=== PATIENT | female | born 1970 | race Caucasian/White ===

== ENCOUNTER → 2018-03-05 | Outpatient (CLI) | payer OTHER ==
[2014-12-08 20:11] VITALS: BP 141/83
--- NOTE | 2018-03-05 13:18 | RAD ---
Left breast ultrasound, 03/05/2018: HISTORY: Mastoiditis The area of clinical concern in the retroareolar region was scanned. There is a complex mass at this level measuring 2.3 x 2.7 x 2.9 cm. It contains cystic and hypoechoic components. There is increased vascularity along the periphery of this process. Its margins are lobulated. The findings suggest cellulitis. No discrete drainable abscess is evident. Clinical and sonographic follow-up is suggested to exclude a neoplastic etiology. Electronically signed by: Partha Millard MD (03/05/2018 1:15 PM) [facility] [place]
== END | disposition home or self-care (01) ==
LOC: US 11:48
PROVIDERS: ATTEND Physician Assistant Medical
DX: N61.0 Mastitis without abscess (principal); N64.4 Mastodynia
CPT/HCPCS: 76641

== ENCOUNTER → 2018-04-29 | Outpatient (CLI) | payer OTHER ==
[2014-12-08 20:11] VITALS: BP 141/83
--- NOTE | 2018-04-29 14:08 | KCIC ---
Bilateral diagnostic digital mammograms with 3-D tomosynthesis: Reason for examination: History of left breast abscess drained March 20, 2018. Still has a hardness in the area. Comparison is made to previous mammographic examination dated 12/23/2013 and ultrasound examination dated 03/05/2018. Bilateral mammograms in CC and oblique projections were obtained with 2-D imaging and 3-D tomosynthesis imaging on a Siemens Inspiration unit and reviewed on the workstation. Interpretation was made with the benefit of CAD. The skin and nipples show no abnormalities. No abnormal axillary lymph nodes are seen. The breast parenchyma shows scattered fatty and fibroglandular density. (Breast density: Category B.) There continues to be some nodularity in the retroareolar position of the left breast corresponding to site of previous abscess drainage. Recommend follow-up with ultrasound. There are no other new dominant masses, suspicious calcifications or architectural distortion. Impression: Nodularity in the subareolar position of the left breast corresponding to the area of previous abscess drainage. Recommend further evaluation with ultrasound. BI-RADS Category 0: Incomplete. Needs additional imaging evaluation. "Our facility is accredited by the [employer] Mammography [employer]." This patient's information has been entered into a reminder system for the patient to be notified with the results of her examination and a target date for the next mammogram. Electronically signed by: Massiel Cedeno MD (04/29/2018 2:03 PM) [facility]
== END | disposition home or self-care (01) ==
LOC: KCIC MAMMO 12:47
PROVIDERS: ATTEND Family Medicine
DX: N61.1 Abscess of the breast and nipple (principal)
CPT/HCPCS: 77066; G0279; 77062

== ENCOUNTER → 2018-05-12 | Outpatient (CLI) | payer OTHER ==
[2014-12-08 20:11] VITALS: BP 141/83
--- NOTE | 2018-05-12 13:34 | KCIC ---
Left breast ultrasound: Reason for examination: Follow-up lump. History of abscess drainage at the site. Comparison is made to previous study dated 03/05/2018. Ultrasound examination of the left breast was performed in the area of clinical concern and at the left axilla. In the retroareolar position there continues to be hypoechoic lesion at the 10:00 retroareolar position which has decreased in size now measuring 9.9 x 8.1 x 7.5 mm in greatest dimensions. No other cystic or solid lesions are seen. No abnormal appearing lymph nodes are seen in the axilla. IMPRESSION: Continued presence of a 9.9 mm lesion in the retroareolar 10:00 position with interval decrease in size. Recommend clinical follow-up. BI-RADS Category 2: Benign. "Our facility is accredited by the [employer] Mammography [employer]." This patient's information has been entered into a reminder system for the patient to be notified with the results of her examination and a target date for the next mammogram. Electronically signed by: Massiel Cedeno MD (05/12/2018 1:31 PM) [facility]
== END | disposition home or self-care (01) ==
LOC: KCIC US 12:57
PROVIDERS: ATTEND Family Medicine
DX: N64.89 Other specified disorders of breast (principal)
CPT/HCPCS: 76641

== ENCOUNTER 2018-08-01 09:00 | Emergency (ER) | payer OTHER ==
[~2018-08-01] VITALS: Ht 172.7 cm; Wt 62.1 kg
[2018-08-01 09:07] VITALS: BP 147/83
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
[2018-08-01] MEDS ORDERED: IBUPROFEN 200 MG TABLET. PO ONE (09:30)
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
== END 2018-08-01 10:44 | disposition home or self-care (01) ==
LOC: ER 09:00
DX: S69.92XA Unspecified injury of left wrist, hand and finger(s), initial encounter (principal); G89.29 Other chronic pain; K58.9 Irritable bowel syndrome, unspecified; W31.89XA Contact with other specified machinery, initial encounter; Y93.B1 Activity, exercise machines primarily for muscle strengthening; Y92.89 Other specified places as the place of occurrence of the external cause; Y99.8 Other external cause status
CPT/HCPCS: 29130; 73140; 99284-25

== ENCOUNTER → 2018-08-21 | Outpatient (CLI) | payer OTHER ==
[2018-08-01 09:07] VITALS: BP 147/83
--- NOTE | 2018-08-21 12:56 | KCIC ---
Right breast diagnostic digital mammograms with 3-D tomosynthesis: Reason for examination: Right nipple discharge for 2 weeks. Comparison is made to previous studies dated 04/29/2018 and 12/23/2013. Right breast mammograms in CC and oblique projections were obtained with 2-D imaging and 3-D tomosynthesis imaging on a Siemens Inspiration unit and reviewed on the workstation. Interpretation was made with the benefit of CAD. The skin and nipple show no abnormalities. No abnormal axillary lymph nodes are seen. The breast parenchyma shows scattered fatty and fibroglandular density. (Breast density: Category B.) There are no dominant masses, suspicious calcifications or architectural distortion. Impression: No evidence of malignancy. Ultrasound to follow. BI-RADS Category 0: Incomplete. Needs additional imaging evaluation. Right breast ultrasound: Right whole breast ultrasound including evaluation of all 4 quadrants and the retroareolar and axillary regions of the right breast was performed. There is ductal ectasia in the retroareolar position of the right breast. There is also however what appears to be a solid nodule measuring 6.7 mm in size in the retroareolar 3:00 position. Further evaluation with ultrasound biopsy is recommended. There are additional small hypoechoic nodules consistent with probable fibrocystic changes at the 10:00 position 1 cm from the nipple measuring 5.4 mm in size and in the 8:00 position 2 cm from the nipple measuring 8.9 mm in size. No suspicious appearing lymph nodes are seen in the axilla. IMPRESSION: 6.7 mm solid-appearing nodule with ill-defined margination located in the retroareolar 3:00 position of the right breast. Recommend ultrasound-guided biopsy. Additional small hypoechoic benign-appearing fibrocystic type lesions at the 10:00 and 8:00 positions of the right breast. Recommend ultrasound follow-up in 6 months. BI-RADS Category 4: Suspicious. These findings have been discussed with the patient and the nurse,Bianca, in Dr. Lucas's office was notified about these findings at 11:25 AM on 08/21/2018. "Our facility is accredited by the [employer] Mammography Program." This patient's information has been entered into a reminder system for the patient to be notified with the results of her examination and a target date for the next mammogram. Electronically signed by: Massiel Cedeno MD (08/21/2018 12:53 PM) [facility]
== END | disposition home or self-care (01) ==
LOC: KCIC MAMMO 10:19
PROVIDERS: ATTEND Family Medicine
DX: N60.41 Mammary duct ectasia of right breast (principal); N63.14 Unspecified lump in the right breast, lower inner quadrant
CPT/HCPCS: 76641; 77065; G0279; 77061

== ENCOUNTER 2018-09-24 13:13 | Emergency (ER) | payer OTHER ==
[~2018-09-24] VITALS: Ht 170.2 cm; Wt 56.7 kg
[2018-09-24 13:37] VITALS: BP 124/78
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
== END 2018-09-24 15:24 | disposition home or self-care (01) ==
LOC: EEVIPCON 13:13 → ER 13:13
DX: S00.83XA Contusion of other part of head, initial encounter (principal); S00.03XA Contusion of scalp, initial encounter; S40.021A Contusion of right upper arm, initial encounter; S00.12XA Contusion of left eyelid and periocular area, initial encounter; S80.12XA Contusion of left lower leg, initial encounter; S80.11XA Contusion of right lower leg, initial encounter; S40.011A Contusion of right shoulder, initial encounter; M54.2 Cervicalgia; G89.29 Other chronic pain; K58.9 Irritable bowel syndrome, unspecified; Y04.8XXA Assault by other bodily force, initial encounter; Y93.89 Activity, other specified; Y92.89 Other specified places as the place of occurrence of the external cause; Y99.8 Other external cause status
CPT/HCPCS: 70450; 70486; 72125; 73060; 73590; 99284-25

== ENCOUNTER 2020-01-09 08:59 | Emergency (ER) | payer SELFPAY ==
[~2020-01-09] VITALS: Ht 172.7 cm; Wt 61.3 kg
[2020-01-09 09:12] VITALS: BP 142/76
[2020-01-09] MEDS ORDERED: LIDOCAINE 1%/EPI 1:100,000 20 ML VIAL. ONE (09:22)
[2020-01-09] MEDS ORDERED: LIDOCAINE 2%/EPI 1:100,000 20 ML VIAL. INJ ONE ×2 (09:30→09:45)
[2020-01-09] MEDS ORDERED: LIDOCAINE 1%/EPI 1:100,000 20 ML VIAL. INJ ONE (09:45)
[2020-01-09] MEDS ORDERED: CEPH-264 PO (09:48)
--- NOTE | 2020-01-09 09:48 | PHYS DOC ---
Past Medical History Past Medical History: IBS, Other Additional Past Medical Histor: back pain, chronic pelvic pain Past Surgical History: Hysterectomy, Tubal ligation, Other Additional Past Surgical Histo: mesh implantHYSTEROSCOPY,I&D BREAST ABSCESS Smoking Status: Current Every Day Smoker Alcohol Use: Occasionally Drug Use: None Social History Narrative: when asked pt states "I use adderall". General Adult EDM: Chief Complaint: ABSCESS HPI: HPI: History obtained from patient. Patient is a 49 old female past medical history notable for breast abscess who presents with chief complaint of abscess to the top of her head. She states has been progressive over the past 2 to 3 days. She notes she is tried draining it with a needle pen at home without relief. She notes the pressure and pain seemed to worsen. She does note some mild purulent drainage. Denies fevers. Is up-to-date on her tetanus. Denies any recent antibiotics. Denies IV drug use or history of MRSA. Denies vomiting. Denies trauma to the scalp. No other complaints. Review of Systems: Review of Systems: Constitutional: Denies fever or chills. [] Eyes: Denies change in visual acuity. [] HENT: Denies nasal congestion or sore throat. [] Respiratory: Denies cough or shortness of breath. [] Cardiovascular: Denies chest pain or edema. [] GI: Denies abdominal pain, nausea, vomiting, bloody stools or diarrhea. [] : Denies dysuria. [] Musculoskeletal: Denies back pain or joint pain. [] Integument: Positive for abscess Neurologic: Denies headache, focal weakness or sensory changes. [] Endocrine: Denies polyuria or polydipsia. [] Lymphatic: Denies swollen glands. [] Psychiatric: Denies depression or anxiety. [] Heart Score: Risk Factors: Risk Factors: DM, Current or recent (<one month) smoker, HTN, HLP, family history of CAD, obesity. Risk Scores: Score 0 - 3: 2.5% MACE over next 6 weeks - Discharge Home Score 4 - 6: 20.3% MACE over next 6 weeks - Admit for Clinical Observation Score 7 - 10: 72.7% MACE over next 6 weeks - Early Invasive Strategies Current Medications: Current Medications Medications (Trade) Dose Ordered Sig/Autumn Start Time Stop Time Status Last Admin Dose Admin Lidocaine/ Epinephrine (LIDOCAINE 1%-EPI 1:100,000 Multi-Dose) 20 ml STK-MED ONCE 01/09/20 09:22 01/09/20 09:22 DC Lidocaine/ Epinephrine (LIDOCAINE 2%-EPI 1:100,000 multi-dose) 20 ml 1X ONCE 01/09/20 09:45 01/09/20 09:46 UNV Allergies: Allergies: Allergies Coded Allergies Type Severity Reaction Last Updated Verified No Known Drug Allergies 09/16/13 No Physical Exam: PE: Constitutional: Well developed, well nourished, no acute distress, non-toxic appearance. [] HENT: 2 X 2 centimeter palpable area of fluctuance to the top of the scalp. Surrounding induration and erythema appreciated. Lees visualized. Eyes: PERRLA, EOMI, conjunctiva normal, no discharge. [] Neck: Normal range of motion, no tenderness, supple, no stridor. [] Cardiovascular:Heart rate regular rhythm, no murmur [] Lungs & Thorax: Bilateral breath sounds clear to auscultation [] Abdomen:, soft, no tenderness, no masses, no pulsatile masses. [] Skin: Warm, dry, no erythema, no rash. [] Back: No tenderness, no CVA tenderness. [] Extremities: No tenderness, no cyanosis, no clubbing, ROM intact, no edema. [] Neurologic: Alert and oriented X 3, normal motor function, normal sensory function, no focal deficits noted. [] Psychologic: Affect normal, judgement normal, mood normal. [] Current Patient Data: Vital Signs: Vital Signs Date Time Temp Pulse Resp B/P (MAP) Pulse Ox O2 Delivery O2 Flow Rate FiO2 01/09/20 09:12 97.0 98 18 142/76 (98) 97 Room Air 97.0 EKG: EKG: [] Radiology/Procedures: Radiology/Procedures: [] Location: Scalp Indications: Purulent fluid collection Procedure Details: Patient's scalp was exposed, positioned, and prepped using Betadine. Landmarks were palpated and skin was appropriately marked as needed. For skin and subcutaneous tissue, 7cc of 1% lidocaine with epinephrine was used. A 2 cm incision was made using #10 through skin in a cruciate fashion. Immediate findings included 4mL of purulent fluid. Specimen was sent for aerobic and anaerobic culture. Cavity further explored to break up all loculations. Wound was irrigated using 250 cc of normal saline. Minimal amount of bleeding occurred, controlled with direct pressure. Wound packed with 1/4 inch ribbon and covered with sterile dressing. Course & Med Decision Making: Course & Med Decision Making Pertinent Labs and Imaging studies reviewed. (See chart for details) [] Patient is a pleasant 49-year-old female presents with chief complaint of abscess to the scalp. Initial vital signs unremarkable. Exam noted above. Incision and drainage performed at bedside. See procedure note for further deta ils. Given she does not have any history of MRSA Keflex will be prescribed. She is current on vaccinations including tetanus. She was instructed to have her wound reevaluated in the next 2 to 3 days. Return precautions discussed and understood. Stable for discharge home. Dragon Disclaimer: Brianda Disclaimer: This electronic medical record was generated, in whole or in part, using a voice recognition dictation system. Departure Departure Impression: Primary Impression: Scalp abscess Disposition: 01 DC HOME SELF CARE/HOMELESS Condition: STABLE Referrals: ZENON TAYLOR MD (PCP) Patient Instructions: Abscess Additional Instructions: Please have wound reevaluated in the next 2 to 3 days. Scripts Cephalexin (KEFLEX) 500 Mg Capsule 1 CAP PO QID for 7 Days, #28 CAP 0 Refills Prov: LAUREN LEWIS DO 01/09/20 LAUREN LEWIS DO Jan 09, 2020 09:48
[2020-01-09] MEDS ORDERED: CEPHALEXIN 250 MG CAPSULE. PO ONE (10:00)
== END 2020-01-09 09:55 | disposition home or self-care (01) ==
LOC: ER 08:59
DX: N61.1 Abscess of the breast and nipple (principal); L53.9 Erythematous condition, unspecified; G89.29 Other chronic pain; F17.200 Nicotine dependence, unspecified, uncomplicated; Z90.710 Acquired absence of both cervix and uterus; Z98.51 Tubal ligation status; Z98.890 Other specified postprocedural states
CPT/HCPCS: 10061; 87071; 87075; 99284; J3490

== ENCOUNTER 2020-01-11 19:46 | Emergency (ER) | payer SELFPAY ==
[~2020-01-11] VITALS: Ht 175.3 cm; Wt 61.3 kg
[~2020-01-11 19:46] MED LIST: CEPH-264 PO
[2020-01-11 19:59] VITALS: BP 133/59
--- NOTE | 2020-01-11 21:12 | RAD ---
EXAM: CT HEAD WITHOUT CONTRAST. HISTORY: Scalp abscess, left ear pain. TECHNIQUE: Computed tomography of the head was performed without intravenous contrast. One or more of the following individualized dose reduction techniques were utilized for this examination: 1. Automated exposure control. 2. Adjustment of the mA and/or kV according to patient size. 3. Use of iterative reconstruction technique. COMPARISON: 09/24/2018. FINDINGS: There is no intracranial hemorrhage. Juárez-white differentiation is preserved. The ventricles are normal in size and position. The visualized paranasal sinuses appear clear. The orbits are unremarkable. The calvarium reveals no suspicious lesions. The left mastoid air cells are normally aerated. There is no evidence of otitis externa by CT. There is no intracranial collection or surrounding swelling. There is focal scalp thickening at the vertex. No clear fluid collection is appreciable by noncontrast CT. The underlying calvarium is unremarkable. IMPRESSION: 1. Focal soft tissue swelling along the vertex scalp. No clear fluid collection by CT. Sonography is more sensitive for small collections if there is persistent concern. 2. No evidence of left mastoiditis. No acute intracranial findings. Electronically signed by: Edin Martínez MD (01/11/2020 9:09 PM) [facility]
[2020-01-11] MEDS ORDERED: HYDROcodone/APAP 5/325MG 1 TAB TABLET PO ONE (21:30)
[2020-01-11] MEDS ORDERED: CIPR7.5D LEFT EAR (21:54)
[2020-01-11] MEDS ORDERED: CLIN150C14 PO (21:54)
--- NOTE | 2020-01-11 21:56 | PHYS DOC ---
Past Medical History Past Medical History: IBS, Other Additional Past Medical Histor: back pain, chronic pelvic pain Past Surgical History: Hysterectomy, Tubal ligation, Other Additional Past Surgical Histo: mesh implantHYSTEROSCOPY,I&D BREAST ABSCESS Smoking Status: Current Every Day Smoker Alcohol Use: Occasionally Drug Use: None General Adult EDM: Chief Complaint: WOUND CHECK HPI: HPI: Patient is a 49 year old female who presents to the emergency department for wound and evaluation. Patient was seen here on January 09, 2020 and had an abscess of her scalp drained. Patient reports that the packing came out while she was sleeping last night. She denies any fever. She reports continued purulent yellow pus from the site with scalp tenderness. She also complains of left ear pain and swelling and tenderness behind her left ear. She denies any cough, shortness of breath, rash, abdominal pain, nausea, vomiting, diarrhea, vision changes, headache, neck pain, or body aches. Patient reports that the lymph nodes behind her left ear. She denies any bleeding or drainage from her ear. She denies ringing in her ears. The patient states that the hearing in the left ear seem to be a bit decreased. She currently rates her pain a 10 out of 10 on the pain scale she denies any alleviating factors or radiation of the pain. The patient states that she has been taking 500 milligrams of Keflex 4 times a day as previously prescribed but denies any improvement in her condition. Review of Systems: Review of Systems: Constitutional: Denies fever or chills. [] Eyes: Denies change in visual acuity. [] HENT: Denies nasal congestion or sore throat.; See HPI [] Respiratory: Denies cough or shortness of breath. [] Cardiovascular: Denies chest pain or edema. [] GI: Denies abdominal pain, nausea, vomiting, or diarrhea. [] Musculoskeletal: Denies back pain or joint pain. [] Integument: Reports erythema and swelling behind the left ear, reports abscess to top of scalp; see HPI Neurologic: Denies headache, focal weakness or sensory changes. [] Lymphatic: See HPI Psychiatric: Denies depression or anxiety. [] Complete ROS is negative unless otherwise stated in the HPI. Heart Score: Risk Factors: Risk Factors: DM, Current or recent (<one month) smoker, HTN, HLP, family history of CAD, obesity. Risk Scores: Score 0 - 3: 2.5% MACE over next 6 weeks - Discharge Home Score 4 - 6: 20.3% MACE over next 6 weeks - Admit for Clinical Observation Score 7 - 10: 72.7% MACE over next 6 weeks - Early Invasive Strategies Current Medications: Current Medications Medications (Trade) Dose Ordered Sig/Autumn Start Time Stop Time Status Last Admin Dose Admin Acetaminophen/ Hydrocodone Bitart (Lortab 5/325) 1 tab 1X ONCE 01/11/20 21:30 01/11/20 21:31 DC 01/11/20 21:07 1 TAB Allergies: Allergies: Allergies Coded Allergies Type Severity Reaction Last Updated Verified No Known Drug Allergies 09/16/13 No Physical Exam: PE: Constitutional: Well developed, well nourished, no acute distress, non-toxic appearance. [] HENT: Normocephalic, atraumatic, bilateral TMs normal, oropharynx moist, no oral exudates, nose normal; edema with fluffy white debris noted in the left ear c anal, and white drainage; there is swelling, tenderness, and erythema of the left mastoid process, no visible abscess [] Eyes: PERRLA, EOMI, conjunctiva normal, no discharge. [] Neck: Normal range of motion, no stridor; left postauricular lymphadenopathy with tenderness to palpation; left mastoid area with 1+ edema, mild erythema, and tenderness to palpation, no visible abscess Cardiovascular:Heart rate regular rhythm, no murmur [] Lungs & Thorax: Respirations even and unlabored, no retractions, no respiratory distress Skin: Warm, dry; abscess present to the frontal scalp with purulent drainage, no packing is present, no surrounding erythema or warmth Extremities: No cyanosis, ROM intact Neurologic: Alert and oriented X 3, normal motor function, normal sensory function, no focal deficits noted. [] Psychologic: Affect normal, judgement normal, mood normal. [] Current Patient Data: Vital Signs: Vital Signs Date Time Temp Pulse Resp B/P (MAP) Pulse Ox O2 Delivery O2 Flow Rate FiO2 01/11/20 21:07 98 Room Air 01/11/20 19:59 98.1 107 16 133/59 (83) 98.1 EKG: EKG: [] Radiology/Procedures: Radiology/Procedures: PROCEDURE: CT HEAD WO CONTRAST EXAM: CT HEAD WITHOUT CONTRAST. HISTORY: Scalp abscess, left ear pain. TECHNIQUE: Computed tomography of the head was performed without intravenous contrast. One or more of the following individualized dose reduction techniques were utilized for this examination: 1. Automated exposure control. 2. Adjustment of the mA and/or kV according to patient size. 3. Use of iterative reconstruction technique. COMPARISON: 09/24/2018. FINDINGS: There is no intracranial hemorrhage. Juárez-white differentiation is preserved. The ventricles are normal in size and position. The visualized paranasal sinuses appear clear. The orbits are unremarkable. The calvarium reveals no suspicious lesions. The left mastoid air cells are normally aerated. There is no evidence of otitis externa by CT. There is no intracranial collection or surrounding swelling. There is focal scalp thickening at the vertex. No clear fluid collection is appreciable by noncontrast CT. The underlying calvarium is unremarkable. IMPRESSION: 1. Focal soft tissue swelling along the vertex scalp. No clear fluid collection by CT. Sonography is more sensitive for small collections if there is persistent concern. 2. No evidence of left mastoiditis. No acute intracranial findings. [] Course & Med Decision Making: Course & Med Decision Making Pertinent Labs and Imaging studies reviewed. (See chart for details) 49-year-old female presented emergency department for wound recheck and new complaint of bilateral ear pain. Head CT is negative for mastoiditis, there is not a clear collection of fluid at the scalp abscess site. I instructed the patient to stop taking the Keflex that was prescribed. Prescription written for clindamycin and Ciprodex eardrops. I advised her that she be a Tylenol or ibuprofen as needed for pain. Follow-up with her primary care doctor 1 to 2 days for reevaluation, return to the ER if symptoms worsen or fever develops. Patient verbalized an understanding of home care, medications, follow-up, and return to ED instructions and was in agreement with the plan of care. [] Dragon Disclaimer: Dragon Disclaimer: This electronic medical record was generated, in whole or in part, using a voice recognition dictation system. Departure Departure Impression: Primary Impression: Scalp abscess Additional Impression: Left otitis externa Qualified Codes: H60.392 - Other infective otitis externa, left ear Referrals: ZENON TAYLOR MD (PCP) Patient Instructions: Abscess, Care After, Otitis Externa, [id number] Additional Instructions: Fill the prescription(s) and use as directed. Stop taking the Keflex. You may take tylenol or ibuprofen as needed for pain. You may apply warm, moist packs to the area to help decrease discomfort. Follow up with your primary care doctor in 1 to 2 days. Return to the ER sooner if your symptoms worsen or you develop a fever. Scripts Ciprofloxacin Hcl/Dexameth (CIPRODEX OTIC SUSPENSION) 7.5 Ml Drops.susp 4 DROP LEFT EAR BID for 7 Days, #7.5 ML Prov: JERZY CAVANAUGH APRN 01/11/20 Clindamycin Hcl (CLINDAMYCIN HCL) 150 Mg Capsule 450 MG PO TID for 7 Days, #63 CAP 0 Refills Prov: JERZY CAVANAUGH APRN 01/11/20 JERZY CAVANAUGH APRN Jan 11, 2020 21:56
== END 2020-01-11 22:08 | disposition home or self-care (01) ==
LOC: ER 19:46
DX: L02.811 Cutaneous abscess of head [any part, except face] (principal); H60.392 Other infective otitis externa, left ear; K58.9 Irritable bowel syndrome, unspecified; F17.200 Nicotine dependence, unspecified, uncomplicated
CPT/HCPCS: 70450; 96374; 99284; 99285

== ENCOUNTER 2020-08-05 19:36 | Emergency (ER) | payer SELFPAY ==
[~2020-08-05] VITALS: Ht 175.3 cm; Wt 63.6 kg
[~2020-08-05 19:36] MED LIST changes: +CIPR7.5D LEFT EAR; +CLIN150C15 PO
[2020-08-05 20:20] VITALS: BP 124/86
--- NOTE | 2020-08-05 21:41 | RAD ---
Exam: Left ribs with PA chest INDICATION: Pain TECHNIQUE: Frontal view of the chest with oblique and lateral views of the left ribs Comparisons: None FINDINGS: The cardiomediastinal silhouette and pulmonary vessels are within normal limits. Patchy airspace disease at the left lung base. No pleural effusion. No displaced rib fracture identified. IMPRESSION: 1. Patchy airspace disease at the left lung base, nonspecific. CT correlation recommended. 2. No displaced rib fracture identified. Electronically signed by: Joselin Flores MD (08/05/2020 9:38 PM) [facility]
[2020-08-05] MEDS ORDERED: NAPROXEN 500 MG TABLET PO STA (21:44)
[2020-08-05] MEDS ORDERED: MORPHINE SULFATE 2 MG/ML VIAL. IV PRN (21:45)
[2020-08-05] MEDS ORDERED: ONDANSETRON PF 4 MG/2 ML VIAL. IV PRN (21:45)
[2020-08-05] MEDS ORDERED: NITROGLYCERIN SUBLINGUAL 0.4 MG BOTTLE OF 25. SL PRN (21:45)
--- NOTE | 2020-08-05 21:55 | RAD ---
Exam: Left clavicle 2 views INDICATION: Pain TECHNIQUE: Frontal and axillary views of the left clavicle. Comparisons: None FINDINGS: Bone mineralization is normal. No acute or healed fractures. Soft tissues are unremarkable. Joint spa juan are well-maintained. IMPRESSION: No acute osseous abnormality. Electronically signed by: Joselin Flores MD (08/05/2020 9:52 PM) [facility]
--- NOTE | 2020-08-05 21:59 | PHYS DOC ---
Past Medical History Past Medical History: IBS, Other Additional Past Medical Histor: back pain, chronic pelvic pain (MERCEDEZCHANELLE Calles PIPE CAULKER) Past Surgical History: Hysterectomy, Tubal ligation, Other Additional Past Surgical Histo: mesh implantHYSTEROSCOPY,I&D BREAST ABSCESS (RENETTACHANELLE Yumiko PIPE CAULKER) Smoking Status: Current Every Day Smoker Alcohol Use: Occasionally Drug Use: None (CHANELLE JACKSON PIPE CAULKER) General Adult EDM: Chief Complaint: RIB PAIN HPI: HPI: Patient is a 49 year old female presenting to the ED today complaining of moderate left rib pain and left clavicle pain that began on Friday which is 6 days ago, patient describes the pain as sharp and constant worse on deep breaths. She states she was receiving a bearhug from a male friend and he ended up falling on her and they landed on the bed. (MERCEDEZStevanCHANELLE Yumiko PIPE CAULKER) Review of Systems: Review of Systems: Constitutional: Denies fever or chills. [] Eyes: Denies change in visual acuity. [] HENT: Denies nasal congestion or sore throat. [] Respiratory: Denies cough or shortness of breath. [] Cardiovascular: Reports right rib pain GI: Denies abdominal pain, nausea, vomiting, bloody stools or diarrhea. [] : Denies dysuria. [] Musculoskeletal: Reports right clavicle pain. Denies back pain or joint pain. [] Integument: Denies rash. [] Neurologic: Denies headache, focal weakness or sensory changes. [] Psychiatric: Denies depression or anxiety. [] (CHANELLE JACKSON PIPE CAULKER) Heart Score: C/O Chest Pain: N/A Risk Factors: Risk Factors: DM, Current or recent (<one month) smoker, HTN, HLP, family history of CAD, obesity. Risk Scores: Score 0 - 3: 2.5% MACE over next 6 weeks - Discharge Home Score 4 - 6: 20.3% MACE over next 6 weeks - Admit for Clinical Observation Score 7 - 10: 72.7% MACE over next 6 weeks - Early Invasive Strategies (CHANELLE JACKSON PIPE CAULKER) Current Medications: Current Medications Medications (Trade) Dose Ordered Sig/Autumn Start Time Stop Time Status Last Admin Dose Admin Morphine Sulfate (Morphine Sulfate) 2 mg PRN Q2HR PRN 08/05/20 21:45 08/06/20 21:44 Cancel Naproxen (Naprosyn) 500 mg 1X STAT 08/05/20 21:44 08/05/20 21:45 DC 08/05/20 21:50 500 MG Nitroglycerin (Nitrostat) 0.4 mg PRN Q5MIN PRN 08/05/20 21:45 08/06/20 21:44 Cancel Ondansetron HCl (Zofran) 4 mg PRN Q8HRS PRN 08/05/20 21:45 08/06/20 21:44 Cancel (MILTONCHANELLE ALMODOVAR PIPE CAULKER) Allergies: Allergies: Allergies Coded Allergies Type Severity Reaction Last Updated Verified I S O L A T I O N *CONTACT* Allergy Unknown 01/12/20 Yes No Known Medication Allergies Allergy Unknown 01/12/20 Yes (MILTONCHANELLE ALMODOVAR PIPE CAULKER) Physical Exam: PE: Constitutional: Well developed, well nourished, no acute distress, non-toxic appearance. [] HENT: Normocephalic, atraumatic, bilateral external ears normal, oropharynx moist, no oral exudates, nose normal. [] Eyes: PERRLA, EOMI, conjunctiva normal, no discharge. [] Neck: Normal range of motion, no tenderness, supple, no stridor. [] Cardiovascular:Heart rate regular rhythm, no murmur [] Lungs & Thorax: Bilateral breath sounds clear to auscultation [] Abdomen: Bowel sounds normal, soft, no tenderness, no masses, no pulsatile masses. [] Skin: Warm, dry, no erythema, no rash. [] Back: No tenderness, no CVA tenderness. [] Extremities: No tenderness, no cyanosis, no clubbing, ROM intact, no edema. [] Neurologic: Alert and oriented X 3, normal motor function, normal sensory function, no focal deficits noted. [] Psychologic: Affect normal, judgement normal, mood normal. [] (CHANELLE JACKSON PIPE CAULKER) Current Patient Data: Vital Signs: Vital Signs Date Time Temp Pulse Resp B/P (MAP) Pulse Ox O2 Delivery O2 Flow Rate FiO2 08/05/20 20:20 98.5 104 20 124/86 (99) 98 Room Air 98.5 (MILTONCHANELLE ALMODOVAR PIPE CAULKER) EKG: EKG: [] (CHANELLE JACKSON APRN) Radiology/Procedures: Radiology/Procedures: []PROCEDURE: RIBS LEFT AND PA CHEST Exam: Left ribs with PA chest INDICATION: Pain TECHNIQUE: Frontal view of the chest with oblique and lateral views of the left ribs Comparisons: None FINDINGS: The cardiomediastinal silhouette and pulmonary vessels are within normal limits. Patchy airspace disease at the left lung base. No pleural effusion. No displaced rib fracture identified. IMPRESSION: 1. Patchy airspace disease at the left lung base, nonspecific. CT correlation recommended. 2. No displaced rib fracture identified. Electronically signed by: Joselin Lloyd MD (08/05/2020 9:38 PM) [facility] [address] DICTATED and SIGNED BY: JOSELIN LLOYD MD DATE: 08/05/20 [id number] PROCEDURE: CLAVICLE LEFT Exam: Left clavicle 2 views INDICATION: Pain TECHNIQUE: Frontal and axillary views of the left clavicle. Comparisons: None FINDINGS: Bone mineralization is normal. No acute or healed fractures. Soft tissues are unremarkable. Joint spaces are well-maintained. IMPRESSION: No acute osseous abnormality. Electronically signed by: Joselin Lloyd MD (08/05/2020 9:52 PM) [facility] [place] DICTATED and SIGNED BY: JOSELIN LLOYD MD DATE: 08/05/[id number] 0 (CHANELLE JACKSON APRN) Course & Med Decision Making: Course & Med Decision Making Pertinent Labs and Imaging studies reviewed. (See chart for details) This is a 49-year-old female patient presenting to the ED today complaining of left rib pain and left clavicle pain after receiving a bearhug from a male friend who fell on her. Left rib x-rays including chest were negative for any rib fractures, noted for patchy airway disease, patient was put on doxycycline. Clavicle x-ray is negative. She is also very congested nasally. Follow-up with PCP. (CHANELLE JACKSON APRN) Dragon Disclaimer: Dragon Disclaimer: This electronic medical record was generated, in whole or in part, using a voice recognition dictation system. (CHANELLE JACKSON APRN) Departure Departure Impression: Primary Impression: Contusion of rib on left side Qualified Codes: S20.212A - Contusion of left front wall of thorax, initial encounter Additional Impressions: Contusion of clavicle Qualified Codes: T14.8XXA - Other injury of unspecified body region, initial encounter Left lower lobe pneumonia Qualified Codes: J18.9 - Pneumonia, unspecified organism Sinusitis Qualified Codes: J01.10 - Acute frontal sinusitis, unspecified Disposition: HOME / SELF CARE / HOMELESS Condition: STABLE Referrals: ZENON TAYLOR MD (PCP) follow up with your doctor next week Patient Instructions: Pneumonia, Adult, [id number], Rib Contusion Additional Instructions: You were seen for rib pain and clavicle pain, you did not have any clavicle fracture or rib fractures. You were noted for pneumonia in your lungs. We will put you on antibiotics, ensure you complete them. Follow-up with your doctor after completion of antibiotics to ensure your lungs are clear. Scripts Diclofenac Potassium (DICLOFENAC POTASSIUM) 50 Mg Tablet 1 TAB PO BID, #10 TAB 1 Refill Prov: CHANELLE JACKSON APRN 08/05/20 Cyclobenzaprine Hcl (CYCLOBENZAPRINE HCL) 10 Mg Tablet 1 TAB PO TID, #30 TAB Prov: CHANELLE JACKSON APRN 08/05/20 Doxycycline Hyclate (DOXYCYCLINE HYCLATE) 100 Mg Tablet 1 TAB PO BID, #14 TAB Prov: CHANELLE JACKSON APRN 08/05/20 Attending Signature Attending Signature I have reviewed the PA/HAND ALTERATIONS TAILOR's note and plan of care. I was available for consultation as needed during the patient's visit in the emergency department. I agree with the clinical impression, plan, and disposition. (JOY MAYS DO) CHANELLE JACKSON APRN August 05, 2020 21:59 JOY MAYS DO August 06, 2020 00:13
[2020-08-05] MEDS ORDERED: DICL50TA2 PO (22:09)
[2020-08-05] MEDS ORDERED: CYCL10TA2 PO (22:09)
[2020-08-05] MEDS ORDERED: DOXY100T PO (22:09)
== END 2020-08-05 22:16 | disposition home or self-care (01) ==
LOC: ER 19:36
DX: S20.212A Contusion of left front wall of thorax, initial encounter (principal); J18.9 Pneumonia, unspecified organism; J01.10 Acute frontal sinusitis, unspecified; K58.9 Irritable bowel syndrome, unspecified; G89.29 Other chronic pain; F17.200 Nicotine dependence, unspecified, uncomplicated; Z91.041 Radiographic dye allergy status; W18.39XA Other fall on same level, initial encounter; Y93.89 Activity, other specified; Y92.89 Other specified places as the place of occurrence of the external cause; Y99.8 Other external cause status
CPT/HCPCS: 71101; 73000; 99284